=== PATIENT | female | born 1990 | race Caucasian/White ===

== ENCOUNTER 2017-08-05 09:13 | Emergency (ER) | payer OTHER ==
[~2017-08-05] VITALS: Ht 167.6 cm; Wt 63.6 kg
[2017-08-05 10:10] VITALS: BP 114/74
== END 2017-08-05 10:13 | disposition home or self-care (01) ==
LOC: EMS 09:15
DX: J02.9 Acute pharyngitis, unspecified (principal); J32.9 Chronic sinusitis, unspecified; H92.03 Otalgia, bilateral
CPT/HCPCS: 99283

== ENCOUNTER 2018-07-08 19:23 | Emergency (ER) | payer OTHER ==
[~2018-07-08] VITALS: Ht 167.6 cm; Wt 61.4 kg
[2018-07-08 20:58] VITALS: BP 119/82
== END 2018-07-08 21:01 | disposition home or self-care (01) ==
LOC: EMS 19:24
DX: S20.211A Contusion of right front wall of thorax, initial encounter (principal); J45.909 Unspecified asthma, uncomplicated; Y04.0XXA Assault by unarmed brawl or fight, initial encounter; Y93.89 Activity, other specified; Y92.89 Other specified places as the place of occurrence of the external cause; Y99.8 Other external cause status